=== PATIENT | male | born 1945 | race Caucasian/White ===

== ENCOUNTER 2019-09-28 07:35 | Outpatient (CLI) | payer MEDICARE ==
--- NOTE | 2019-09-28 09:41 | CT ---
CT neck soft tissues with contrast: DATE: 09/28/2019 HISTORY: ICD-10: "R 22.1, neck mass" in 74-year-old male Dysphagia COMPARISON: None FINDINGS: There are flowing, bridging osteophytes protruding into the prevertebral space at all levels of the v isualized upper and mid thoracic spine, from T1-2 through the lowest level imaged, which is T5-6. In the cervical spine, especially large, bulky such osteophytes are present from upper C3 through C6- 7. The very large such osteophytes at C4-5 significantly distort and anteriorly displace the right hypopharynx, almost contacting the right thyroid cartilage, and displacing the larynx to the left. Th e large osteophytes at C5-6 impinge upon the right side of the cricopharyngeus and pharyngeal constrictor musculature. There are multilevel moderate to severe bilateral degenerative facet changes . There is os nuchae adjacent to the spinous processes of C5, C6, and C7. All of these osseous changes are consistent with DISH. There is no evidence of neoplastic tumor mass in the larynx. Other than the chronic anatomical distor tion caused by the bulky osteophytes, no major pathology is identified involving the pharyngeal mucosal, retropharyngeal, and perivertebral, spaces. Mild atherosclerotic plaque of bilateral proximal internal carotids. Otherwise no major pathology felix ntified involving submandibular, parotid, carotid, parapharyngeal, radon inspector, sublingual, and posterior cervical, spaces. No cervical lymphadenopathy. Lung apices are grossly clear. At the upper most images, there is soft tissue density mass filling and expanding the left nasal cavi ty at the level of the middle meatus. It displaces the nasal septum to the right. It is incompletely imaged. IMPRESSION: 1.) DISH (diffuse idiopathic skeletal hyperostosis), including bulky bridging cervical osteophytes pr otruding far anteriorly in the neck, distorting and displacing hypopharynx, larynx, and pharyngoesophageal junction, which would be a cause of dysphagia. 2.) Soft tissue density mass in the left middle meatus of the nasal cavity displacing the nasal septu m to the right. This is only partially imaged. Recommend direct visualization. 3.) Otherwise no evidence of aggressive process in the rest of the neck.
[2019-09-28] MEDS ORDERED: Iopamidol 370 76% 100 ML VIAL ONE (13:31)
== END 2019-09-28 07:36 | disposition home or self-care (01) ==
LOC: CT 07:35
PROVIDERS: ATTEND Specialist
DX: R22.1 Localized swelling, mass and lump, neck (principal); M48.12 Ankylosing hyperostosis [Forestier], cervical region; M25.78 Osteophyte, vertebrae; J34.9 Unspecified disorder of nose and nasal sinuses
CPT/HCPCS: 70491; 82565; Q9967

== ENCOUNTER 2023-05-12 09:30 | Inpatient (IN) | payer MEDICARE ==
[2023-05-12 09:24] VITALS: BMI 28.5
[2023-05-12 09:43] LABS: Hematocrit 41.4 % (38.8-50.0); Hemoglobin 13.8 g/dL (13.5-17.5); Mean Corpuscular HGB CONC 33.3 g/dL (32.0-36.0); Mean Corpuscular Hemoglobin 31.1 pg (27.0-33.0); Mean Corpuscular Volume 93.2 fl (81.2-95.1); Mean Platelet Volume 11.1 fl (7.4-10.4); Platelet Count 191 10x3/uL (150-450); RBC Distribution Width 13.1 % (11.5-14.5); Red Blood Cell (RBC) Count 4.44 10x6/uL (4.32-5.72); White Blood Cell (WBC) Count 6.1 10x3/uL (3.5-10.5)
[2023-05-12 09:49] LABS: INR-International Normal Ratio 1.2; PTT 36.6 sec (22.0-33.0); Prothrombin Time 12.4 sec (9.5-12.1)
[2023-05-12 09:53] LABS: Bilirubin Neg (Negative); Blood, Urine Negative (Negative); Clarity Clear (Clear); Glucose, Urine (Dipstick) >=1000 mg/dL (Negative); Ketone, Urine Negative (Negative); Leukocyte Negative (Negative); Nitrite Negative (Negative); Protein, Urine (Dipstick) Negative (Neg-Trace); Specific Gravity, Urine 1.005 (1.005-1.030); Urobilinogen Normal mg/dL (Less than 2)
[2023-05-12 09:55] LABS: ALT (SGPT) 26 U/L (8-55); AST (SGOT) 30 U/L (5-34); Albumin 4.3 g/dL (3.4-4.8); Alkaline Phosphatase 57 U/L (40-110); Anion Gap 13 mmol/L (10-20); BUN (Urea Nitrogen) 18 mg/dL (8.4-25.7); Bilirubin, Total 0.9 mg/dL (0.2-1.2); Calc. Creatinine Clearance 87 mL/min (70-130); Calcium 8.9 mg/dL (7.8-10.44); Carbon Dioxide 25 mmol/L (23-31); Chloride 106 mmol/L (98-107); Estimated GFR 77; Globulin 2.4 g/dL (2.4-3.5); Glucose 93 mg/dL (83-110); Potassium 4.1 mmol/L (3.5-5.1); Protein, Total 6.7 g/dL (5.8-8.1); Sodium 140 mmol/L (136-145)
[2023-05-18] MEDS ORDERED: Heparin 10,000 UNITS/ 10 ML VIAL ONE (06:48)
[2023-05-18] MEDS ORDERED: CEFAZOLIN 2 GM VIAL ONE (06:48)
[2023-05-18] MEDS ORDERED: Protamine Sulfate 50 MG/5 ML VIAL ONE (06:48)
[2023-05-18] MEDS ORDERED: fentaNYL 50 mcg/mL 1 mL Vial ONE (06:56)
[2023-05-18] MEDS ORDERED: Vasopressin 20 UNITS/ML VIAL ONE (06:57)
[2023-05-18] MEDS ORDERED: Famotidine/PF 20 mg/2ml Vial ONE (06:57)
[2023-05-18] MEDS ORDERED: PHENYLEPHRINE-NS 100 MCG/ML 10 ML SYRINGE ONE (06:57)
[2023-05-18] MEDS ORDERED: SUGAMMADEX SODIUM 200 MG/2 ML VIAL ONE ×2 (06:57→06:59)
[2023-05-18] MEDS ORDERED: Ondansetron PF 4 MG/2 ML Vial ONE (07:37)
[2023-05-18] MEDS ORDERED: ePHEDrine Sulfate 50 MG/10 ML VIAL ONE (07:37)
[2023-05-18] MEDS ORDERED: Rocuronium Bromide 10 MG/ML (10ML VIAL) ONE (07:37)
[2023-05-18] MEDS ORDERED: Dexamethasone 20 MG/5 ML VIAL ONE (07:37)
[2023-05-18] MEDS ORDERED: Lidocaine 1% PF 5 ML VIAL ONE (07:37)
[2023-05-18] MEDS ORDERED: PROPOFOL 200 MG/20 ML VIAL ONE (07:37)
[2023-05-18] MEDS ORDERED: Iopamidol 370 76% 100 ML VIAL ONE (08:55)
[2023-05-18] MEDS ORDERED: Dexamethasone 4 mg/ml Vial ONE (09:28)
== END 2023-05-18 14:34 | disposition home or self-care (01) | DRG 274 ==
LOC: SURG A 05-18 05:46
PROVIDERS: ADMIT Internal Medicine Cardiovascular Disease; ATTEND Internal Medicine Cardiovascular Disease
PROC: 02L73DK Occlusion of Left Atrial Appendage with Intraluminal Device, Percutaneous Approach (ICD-10-PCS; principal; 2023-05-18)
PROC: B24BZZ4 Ultrasonography of Heart with Aorta, Transesophageal (ICD-10-PCS; 2023-05-18)
PROC: 3E033XZ Introduction of Vasopressor into Peripheral Vein, Percutaneous Approach (ICD-10-PCS; 2023-05-18)
DX: I48.0 Paroxysmal atrial fibrillation (principal); Z00.6 Encounter for examination for normal comparison and control in clinical research program; I42.0 Dilated cardiomyopathy; E78.5 Hyperlipidemia, unspecified; F17.210 Nicotine dependence, cigarettes, uncomplicated; I50.9 Heart failure, unspecified; I11.0 Hypertensive heart disease with heart failure; Z90.89 Acquired absence of other organs; Z98.890 Other specified postprocedural states; Z79.01 Long term (current) use of anticoagulants; Z79.899 Other long term (current) drug therapy; Z88.2 Allergy status to sulfonamides
CPT/HCPCS: 33340; 36415; 80053; 81003; 85027; 85347; 85610; 85730; 86850; 86900; 86901; 93005; 93010; 93306; 93312; C1759; C1760; C1894; J1100; J1644; J2405; J2704; J2720; J3010; Q9967; S0028